=== PATIENT | male | born 1985 | race Caucasian/White ===

== ENCOUNTER 2018-01-07 05:34 | Emergency (ER) | payer MEDICAID ==
[~2018-01-07] VITALS: Ht 185.4 cm; Wt 106.1 kg
[2018-01-07 05:40] VITALS: Ht 185.4 cm; Wt 106.1 kg
[2018-01-07] MEDS ORDERED: KLONOPIN1 MG PO (05:41)
[2018-01-07] MEDS ORDERED: PROPRANOLOL HCL20 MG PO (05:41)
[2018-01-07] MEDS ORDERED: PROZAC20 MG PO (05:41)
[2018-01-07 06:51] VITALS: BP 126/85
== END 2018-01-07 06:52 | disposition home or self-care (01) ==
LOC: D.ER 05:34
DX: S01.511A Laceration without foreign body of lip, initial encounter (principal); Y04.2XXA Assault by strike against or bumped into by another person, initial encounter; Y93.89 Activity, other specified; Y92.89 Other specified places as the place of occurrence of the external cause; I10 Essential (primary) hypertension; F31.9 Bipolar disorder, unspecified